=== PATIENT | male | born 1975 | race Caucasian/White ===

== ENCOUNTER 2021-05-31 22:44 | Emergency (ER) | payer BC, SELFPAY ==
--- NOTE | ~2021-05-31 | CT_ITS ---
EXAMINATION: CTA brain carotid DATE: 05/31/2021 23:40 INDICATION: Hemianopsia TECHNIQUE: Computed tomographic angiography (CTA) of the head was performed without and with 100 mL O mnipaque-350 intravenous contrast. CTA of the neck was performed with intravenous contrast. The dose- length product was 1823.60 mGy-cm. Maximum intensity projection and volume rendered 3D-reconstruction s were created by the technologist on a separate workstation. Automated exposure control and iterativ e reconstruction technique were employed. COMPARISON: None. FINDINGS: HEAD CTA: There is no intracranial hemorrhage, acute infarction, or abnormal mass lesion. The ventric les are normal. There is no abnormal mass effect or midline shift. The felder-white matter differentiat ion is normal. The basal cisterns are patent. The orbits are normal. The paranasal sinuses, mastoids and calvarium are normal. There is no significant stenosis of the basilar artery or posterior cerebral arteries. There is no si gnificant stenosis of the intracranial internal carotid arteries or the anterior or middle cerebral a rteries. The posterior communicating arteries are normal. The anterior communicating artery is diminu tive. There is no aneurysm. NECK CTA: The thyroid gland is unremarkable. The submandibular and parotid glands are symmetric. Ther e is no lymphadenopathy. There are no masses identified. The airway is unremarkable. There is moderat e cervical spondylosis at C5 C6-7. The superior mediastinum is unremarkable. There is 0% stenosis of the proximal right internal carotid artery relative to normal distal artery l umen diameter (NASCET criteria). There is 0% stenosis of the proximal left internal carotid artery re lative to normal distal artery lumen diameter. IMPRESSION: 1. No acute intracranial abnormality. Normal head CTA. 2. 0% stenosis of the proximal right internal carotid artery relative to normal distal artery lumen d iameter (NASCET criteria). 3. 0% stenosis of the proximal left internal carotid artery relative to normal distal artery lumen di ameter. Reviewed, dictated and finalized at location A. IMPRESSION: 1. No acute intracranial abnormality. Normal head CTA. 2. 0% stenosis of the proximal right internal carotid artery relative to normal distal artery lumen diameter (NASCET criteria). 3. 0% stenosis of the proximal left internal carotid artery relative to normal distal artery lumen diameter.
[2021-05-31 22:53] VITALS: BP 149/92; PULSE 54; RESP 18; TEMP 36.6; O2SAT 100
--- NOTE | 2021-05-31 23:11 | ECG_ITS ---
Measurements Intervals [place] Rate: 97 P: 46 ND: 160 QRS: -4 QRSD: 100 T: 99 QT: 362 QTc: 461 Interpretive Statements SINUS RHYTHM VENTRICULAR PREMATURE COMPLEX POSSIBLE LEFT ATRIAL ENLARGEMENT DELAYED PRECORDIAL R/S TRANSITION CONSIDER INFERIOR INFARCT, AGE INDETERMINATE BORDERLINE T WAVE ABNORMALITY- HIGH LATERAL LEADS ABNORMAL ECG Electronically Signed On 06-01-2021 5:38:11 CDT by Johnny Zaldivar D.O.
[2021-05-31 23:30] VITALS: BP 149/92; PULSE 54; RESP 18; O2SAT 100
[2021-05-31 23:32] LABS: Basophils Percent Auto 0.5 % (0.2-1.2); Eosinophils Absolute Auto 0.2 K/mm3 (0-0.3); Eosinophils Percent Auto 2.6 % (0-4.4); Hematocrit 45.8 % (42.0-52.0); Hemoglobin 15.4 g/dL (14.0-18.0); Immature Granulocyte Absolute 0.03 K/mm3 (0.00-0.031); Immature Granulocyte Percent A 0.4 % (0-0.5); Lymphocytes Absolute Auto 2.96 K/mm3 (0.9-3.2); Lymphocytes Percent Auto 36.8 % (18.3-44.2); Mean Corpuscular HGB Conc 33.6 g/dl (32-36); Mean Corpuscular Hemoglobin 31.8 pg (26-34); Mean Corpuscular Volume 94.4 fl (80-100); Mean Platelet Volume 9.6 fl (7.4-10.4); Monocytes Absolute Auto 0.7 K/mm3 (0.1-0.6); Monocytes Percent Auto 8.2 % (2.6-8.5); Neutrophils Absolute Auto 4.2 K/mm3 (1.3-6.7); Neutrophils Percent Auto 51.5 % (45.5-73.1); Platelet Count Result 295 k/mm3 (150-375); Red Blood Count 4.85 M/mm3 (4.6-6.20); Red Cell Distribution Width 13.1 % (11.5-14.5); White Blood Count 8.1 K/mm3 (4.5-10.0)
[2021-05-31 23:41] LABS: Prothrombin Time 12.9 Seconds (11.1-14.7)
[2021-05-31 23:45] VITALS: BP 137/103; PULSE 109; RESP 24; O2SAT 97
[2021-06-01] VITALS: BP 141/100; PULSE 101; RESP 23; O2SAT 96
[2021-06-01 00:20] VITALS: BP 136/104; PULSE 94; RESP 22; O2SAT 95
--- NOTE | 2021-06-01 00:25 | ED.EYEPROB ---
HPI - Eye Problem General Chief complaint: Eye Problems Stated complaint: loss of vision in right eye Time Seen by Provider: 05/31/21 23:09 Source: patient Mode of arrival: ambulatory Limitations: no limitations History of Present Illness HPI Narrative: 46-year-old with no major medical problems here with complaints of loss of vision in the right eye. Patient states that he had a brief nap at 9 PM woke up at 9.35 pm and is unable to see out of his right eye. Patient denies any headache or trauma. No previous history of stroke or visual problems. MD chief complaint: vision change Onset (ago): hour(s) (1) Onset description: sudden Duration: constant Location: right eye Eye Symptoms: other (Loss of peripheral vision) Place: home Severity: moderate Associated symptoms: none Related Data Home Medications Medication Instructions Recorded Confirmed No Home Medications 05/31/21 05/31/21 Allergies Allergy/AdvReac Type Severity Reaction Status Date / Time codeine Allergy Unknown Verified 05/31/21 23:43 NSAIDS (Non-Steroidal Allergy Anaphylactic Verified 05/31/21 23:43 Anti-Inflamma Shock Review of Systems Review of Systems: All systems reviewed & are unremarkable except as noted in HPI and below Constitutional: Constitutional: Reports no additional constitutional complaints Eyes: Eyes: Reports loss of peripheral vision (on the right) ENT: Reports system reviewed and no additional complaints, except as documented Cardiovascular: Cardiovascular: Reports no additional cardiovascular complaints Respiratory: Respiratory: Reports no additional respiratory complaints Gastrointestinal: Gastrointestinal: Reports no additional gastrointestinal complaints Musculoskeletal: Musculoskeletal: Reports no additional musculoskeletal complaints Integumentary/Breasts: Skin/Breast: Reports system reviewed and no additional complaints, except as docu Neurologic: Reports system reviewed and no additional complaints, except as documented Exam Narrative: GENERAL: Well-appearing, well-nourished, and in no acute distress. HEAD: Normocephalic, atraumatic. EYES: PERRLA and EOMI. Fundus is normal ,has no peripheral vision on the right lateralside ENT: Nares clear, no rhinorrhea or epistaxis. Mucous membranes moist. NECK: Supple. CHEST: Clear to auscultation. No respiratory distress. HEART: Regular rate and rhythm. No murmur heard. Normal peripheral pulses. ABDOMEN: Soft, nontender, nondistended, normal active bowel sounds. EXTREMITIES: Normal range of motion. No edema. SKIN: Warm, dry, no rash. NEURO: No focal deficits. Alert and oriented x3. PSYCH: Normal mood and affect. Course Course Emergency Course: Patient continues to have peripheral loss of vision on the right side. Informed him about his lab work, CT findings. I discussed with Dr. Trotter neurology at [facility] recommended ophthalmology consult. This discussed with Dr. oGyal recommended patient transferred to [facility] ER. Vital Signs Vital signs: Vital Signs Temperature 36.6 C 05/31/21 22:53 Pulse Rate 54 L 05/31/21 22:53 Respiratory Rate 18 05/31/21 22:53 Blood Pressure 149/92 H 05/31/21 22:53 Pulse Oximetry 100 05/31/21 22:53 Temperature 36.6 C 05/31/21 22:53 Pulse Rate 54 L 05/31/21 23:30 Respiratory Rate 18 05/31/21 23:30 Blood Pressure 149/92 H 05/31/21 23:30 Pulse Oximetry 100 05/31/21 23:30 MDM - Eye Problem Differential Diagnosis Differential diagnosis: Likely other (caental art occlusion , retinal detachment , stroke) Lab Data Result diagrams: 05/31/21 23:25 05/31/21 23:24 Labs: Lab Results 05/31/21 05/31/21 05/31/21 Range/Units 23:24 23:25 23:25 WBC 8.1 (4.5-10.0) K/mm3 RBC 4.85 (4.6-6.20) M/mm3 Hgb 15.4 (14.0-18.0) g/dL Hct 45.8 (42.0-52.0) % MCV 94.4 (80-100) fl MCH 31.8 (26-34) pg MCHC 33.6 (32-36) g/dl RDW 13.1 (11.5-14.5) % Plt Cou
[2021-06-01 00:29] VITALS: PULSE 98
[2021-06-01] MEDS: METOPROLOL TARTRATE INJ 5 MG/5 ML VIAL IV PUSH (00:29)
[2021-06-01 00:33] VITALS: BP 140/105; PULSE 97; RESP 26; O2SAT 96
[2021-06-01 00:40] VITALS: BP 132/83; PULSE 91; RESP 24; O2SAT 94
[2021-06-01 00:55] VITALS: BP 138/106; PULSE 90; RESP 14; O2SAT 95
== END 2021-06-01 00:55 | disposition short-term general hospital (02) ==
PROVIDERS: Emergency Provider Family Medicine
DX: H53.47 Heteronymous bilateral field defects (principal)
CPT/HCPCS: 36415; 70496; 70498; 84484; 85025; 85610; 93005; 96374; 99285; Q9967

== ENCOUNTER 2022-04-10 12:29 | Emergency (ER) | payer BC, SELFPAY ==
--- NOTE | ~2022-04-10 | US_ITS ---
EXAMINATION: US venous doppler LE RT DATE: 04/10/2022 13:26 INDICATION: Right lower limb swelling TECHNIQUE: Putnam scale images without and with compression and Doppler images of the right lower extre mity veins were obtained. COMPARISON: None FINDINGS: The right common femoral vein, profunda femoral vein, femoral vein, popliteal vein, peronea l trunk, posterior tibial veins, and greater saphenous vein are patent. IMPRESSION: 1. Patent right lower extremity veins. No evidence of deep venous thrombosis. Reviewed, dictated and finalized at location B.
[2022-04-10 12:33] VITALS: BP 154/95; PULSE 72; RESP 16; TEMP 36.3; O2SAT 100
[2022-04-10 12:46] LABS: Basophils Absolute Auto 0.1 K/mm3 (0.0-0.1); Basophils Percent Auto 0.8 % (0.2-1.2); Eosinophils Absolute Auto 0.4 K/mm3 (0-0.3); Eosinophils Percent Auto 4.9 % (0-4.4); Hematocrit 45.6 % (42.0-52.0); Hemoglobin 15.3 g/dL (14.0-18.0); Immature Granulocyte Absolute 0.02 K/mm3 (0.00-0.031); Immature Granulocyte Percent A 0.3 % (0-0.5); Lymphocytes Absolute Auto 2.45 K/mm3 (0.9-3.2); Lymphocytes Percent Auto 34.1 % (18.3-44.2); Mean Corpuscular HGB Conc 33.6 g/dl (32-36); Mean Corpuscular Hemoglobin 31.1 pg (26-34); Mean Corpuscular Volume 92.7 fl (80-100); Mean Platelet Volume 9.6 fl (7.4-10.4); Monocytes Absolute Auto 0.5 K/mm3 (0.1-0.6); Monocytes Percent Auto 6.4 % (2.6-8.5); Neutrophils Absolute Auto 3.9 K/mm3 (1.3-6.7); Neutrophils Percent Auto 53.5 % (45.5-73.1); Platelet Count Result 261 k/mm3 (150-375); Red Blood Count 4.92 M/mm3 (4.6-6.20); Red Cell Distribution Width 12.7 % (11.5-14.5); White Blood Count 7.2 K/mm3 (4.5-10.0)
[2022-04-10 13:00] LABS: Alanine Aminotransferase 30 U/L (6-50); Albumin Level 4.6 g/dL (3.5-5.1); Alkaline Phosphatase 73 U/L (38-126); Anion Gap 16 mmol/L (8-16); Aspartate Amino Transferase 33 U/L (17-59); Bilirubin,Total 1.2 mg/dL (0.2-1.3); Blood Urea Nitrogen 18 mg/dL (9-20); Calcium 9.2 mg/dL (8.4-10.2); Carbon Dioxide 26 mmol/L (22-30); Chloride 99 mmol/L (98-107); Estimated CRCL calculation 111 ml/min; Estimated Glomerular Filt Rate > 60; Glucose 108 mg/dL (65-110); Potassium 4.4 mmol/L (3.4-5.0); Sodium 141 mmol/L (137-145)
[2022-04-10 13:09] LABS: INR 1.2; Prothrombin Time 14.8 Seconds (11.1-14.7)
--- NOTE | 2022-04-10 13:50 | ED.GENADULT ---
HPI - General Adult General Chief complaint: Unspecified Stated complaint: snake bite follow up Time Seen by Provider: 04/10/22 12:39 History of Present Illness HPI narrative: 46-year-old male presenting to the emergency department for evaluation of persistent right lower leg swelling after a copperhead bite approximately 1 week ago. This happened when he was in [place]. Antivenom was not given. Patient states that the foot usually swells up during the day but then resolves at nighttime. Patient states that the swelling did not improve last night so he presented to the emergency department for evaluation. Related Data Allergies Allergy/AdvReac Type Severity Reaction Status Date / Time codeine Allergy Unknown Verified 05/31/21 23:43 NSAIDS (Non-Steroidal Allergy Anaphylactic Verified 05/31/21 23:43 Anti-Inflamma Shock Review of Systems Review of Systems: CONSTITUTIONAL: Denies fever, chills, or sweats. EYES: Denies visual changes, redness, or discharge. ENT: Denies rhinorrhea, congestion, sore throat, or otalgia. CARDIOVASCULAR: Denies chest pain, palpitations, or edema. RESPIRATORY: Denies cough or dyspnea. GASTROINTESTINAL: Denies abdominal pain, nausea, vomiting, or diarrhea. GENITOURINARY: Denies dysuria or hematuria. SKIN: Denies rash or itching. MUSCULOSKELETAL: See HPI NEUROLOGIC: Denies headache, numbness, or weakness. Exam Narrative: APPEARANCE: Well appearing, no pain, no distress, well-nourished. HEAD: normocephalic, atraumatic. EYES: PERRLA/EOMI, conjunctivae clear. NOSE: Normal no drainage NECK: Supple. No adenopathy, no masses. RESPIRATORY: Airway patent, respirations nonlabored. Clear to auscultation bilaterally, no rales, rhonchi, wheezing. CARDIOVASCULAR: Regular rate and rhythm without murmurs rubs or gallops. ABDOMINAL: Soft, nontender, nondistended, normal bowel sounds MUSCULOSKELETAL: Moves all extremities. Normal cap refill. Strong dorsalis pedis pulse. Edema of the right lower extremity. NEURO: Alert. Cranial nerves II through XII intact. Grossly intact SKIN: No evidence of cellulitis or necrosis. Course Course Emergency Course: Ultrasound shows no evidence of DVT. Patient is up to the results of the work-up and exam. Patient was updated on ways to help treat the edema. All questions and concerns were addressed. Vital Signs Vital signs: Vital Signs Temperature 97.3 F L 04/10/22 12:33 Pulse Rate 72 04/10/22 12:33 Respiratory Rate 16 04/10/22 12:33 Blood Pressure 154/95 H 04/10/22 12:33 Pulse Oximetry 100 04/10/22 12:33 Temperature 97.3 F L 04/10/22 12:33 Pulse Rate 70 04/10/22 14:19 Respiratory Rate 18 04/10/22 14:19 Blood Pressure 140/89 04/10/22 14:19 Pulse Oximetry 99 04/10/22 14:19 Medical Decision Making Vital Signs Vital Signs: Vital Signs Temperature 97.3 F L 04/10/22 12:33 Pulse Rate 72 04/10/22 12:33 Respiratory Rate 16 04/10/22 12:33 Blood Pressure 154/95 H 04/10/22 12:33 Pulse Oximetry 100 04/10/22 12:33 Temperature 97.3 F L 04/10/22 12:33 Pulse Rate 70 04/10/22 14:19 Respiratory Rate 18 04/10/22 14:19 Blood Pressure 140/89 04/10/22 14:19 Pulse Oximetry 99 04/10/22 14:19 Lab Data Lab results reviewed: Yes I reviewed the patient's lab results. Result diagrams: 04/10/22 12:39 04/10/22 12:39 Labs: Lab Results 04/10/22 04/10/22 04/10/22 Range/Units 12:39 12:39 12:39 WBC 7.2 (4.5-10.0) K/mm3 RBC 4.92 (4.6-6.20) M/mm3 Hgb 15.3 (14.0-18.0) g/dL Hct 45.6 (42.0-52.0) % MCV 92.7 (80-100) fl MCH 31.1 (26-34) pg MCHC 33.6 (32-36) g/dl RDW 12.7 (11.5-14.5) % Plt Count 261 (150-375) k/mm3 MPV 9.6 (7.4-10.4) fl Immature Gran % (Auto) 0.3 (0-0.5) % Neut % (Auto) 53.5 (45.5-73.1) % Lymph % (Auto) 34.1 (18.3-44.2) % [place] % (Auto) 6.4 (2.6-8.5) % Eos % (Auto) 4.9 H (0-4.4) % Baso % (Auto)
[2022-04-10] MEDS: ONDANSETRON HCL ODT 4 MG TABLET PO (14:05)
[2022-04-10 14:19] VITALS: BP 140/89; PULSE 70; RESP 18; O2SAT 99
== END 2022-04-10 14:20 | disposition home or self-care (01) ==
PROVIDERS: Emergency Provider Emergency Medicine; PCP Family Medicine Sports Medicine
DX: M79.89 Other specified soft tissue disorders (principal); Z87.828 Personal history of other (healed) physical injury and trauma
CPT/HCPCS: 36415; 80053; 85025; 85610; 93971; 99284; A9270

== ENCOUNTER 2025-02-07 15:44 | Emergency (ER) | payer BC, SELFPAY ==
--- NOTE | ~2025-02-07 | XR_ITS ---
EXAM: XR hand RT min 3V DATE: 02/07/2025 16:19 HISTORY: hand pain/swelling after fall . COMPARISON: None available. FINDINGS: Normal mineralization. No fracture or dislocation. No lytic or blastic lesion. Joint space s are maintained. No erosion or periosteal change. Soft tissues within normal limits. IMPRESSION: No acute osseous finding in the right hand. Reviewed, dictated and finalized at location K.
[2025-02-07 15:52] VITALS: BP 139/101; PULSE 74; RESP 16; TEMP 36.6; O2SAT 98
--- NOTE | 2025-02-07 16:26 | ED.UPPEXIN ---
HPI - Extremity Injury (Upper) General Chief Complaint: Extremity Injury, Upper Stated Complaint: Swollen Hands Source: patient Mode of arrival: ambulatory Limitations: no limitations History of Present Illness HPI narrative: 49-year-old male presented for complaint of right hand pain and swelling following an injury today. He states at 1:00 p.m. he fell from a 4 ft ladder, and landed on the right palmar side of the hand onto asphalt. Pain is mostly to the thumb, index and middle fingers. pain also radiates into the forearm. Denies wrist pain, numbness, tingling, weakness, bruising or deformity. Related Data Home Medications ?Medication ?Instructions ?Recorded ?Confirmed ?Last Taken ?Type apixaban 5 mg tablet (Eliquis) mg 02/07/25 Unknown History atorvastatin 80 mg tablet mg 02/07/25 Unknown History dapagliflozin propanediol 10 mg mg 02/07/25 Unknown History tablet lisinopril 10 mg tablet mg 02/07/25 Unknown History sotalol 120 mg tablet mg 02/07/25 Unknown History Allergies Allergy/AdvReac Type Severity Reaction Status Date / Time codeine Allergy Unknown Verified 02/07/25 16:13 NSAIDS (Non-Steroidal Allergy Anaphylactic Verified 02/07/25 16:13 Anti-Inflamma Shock Review of Systems Review of Systems: CONSTITUTIONAL: Denies body aches, fever, chills EYES: Denies visual changes ENT: Denies rhinorrhea, congestion CARDIOVASCULAR: Denies chest pain, palpitations, or edema. RESPIRATORY: Denies cough or dyspnea. SKIN: Denies wounds. MUSCULOSKELETAL: reports Right hand pain NEUROLOGIC: Denies headache, numbness, tingling, or weakness. All systems reviewed & are unremarkable except as noted in HPI and below [facility] Comments At time of signature, I have reviewed and agree with nursing past medical, surgical, social and family history unless otherwise noted. Please see nursing chart for further information. There is no relevant family history pertinent to the presenting complaint Exam Narrative: GENERAL: Well-appearing. CHEST: Speaks in full sentences. No respiratory distress. HEART: Regular rate and rhythm. Normal and equal peripheral pulses. EXTREMITIES: Right hand is tender with palpation to MTP1-3, mild swelling. No bruising or deformity. Hand has normal strength and sensation, normal range of motion and finger cascade. Thumbs up sign normal. Contract Implementation Analyst strong but reports pain. No open wounds. alignment normal, pulse palpable and equal bilaterally, skin warm, dry, pink. Capillary refill less than 3 seconds. SKIN: Warm, dry NEURO: Alert and oriented x3. PSYCH: Normal mood and affect Course Course Emergency Course: Patient is aware of diagnosis, understands and agrees to treatment plan. Anticipatory guidance given. Patient agrees to follow-up as directed and is aware of reasons to seek care at the emergency department. Portions of this record may have been created with voice recognition software Level of Care: Express Care Visit Vital Signs Vital signs: Vital Signs Temperature 97.9 F 02/07/25 15:52 Pulse Rate 74 02/07/25 15:52 Respiratory Rate 16 02/07/25 15:52 Blood Pressure 139/101 H 02/07/25 15:52 Pulse Oximetry 98 02/07/25 15:52 Temperature 97.9 F 02/07/25 15:52 Pulse Rate 74 02/07/25 15:52 Respiratory Rate 16 02/07/25 15:52 Blood Pressure 139/101 H 02/07/25 15:52 Pulse Oximetry 98 02/07/25 15:52 Reviewed MDM - Extremity Injury (Upper) MDM Narrative Medical decision making narrative: Discussed physical exam findings and xray.declined brandin. Advised supportive measures and signs/symptoms to go to the ER. Pt is appropriate for outpt treatment and f/u. Differential Diagnosis Differential diagnosis: Likely sprain and strain of wrist, fracture of wrist, finger sprain, dislocation of finger and fracture of hand Imaging Data Radiologist's impression: Patient: Tl [place] : 1975 MR#: [id number] Age: 49 Acct:[id number] Loc: [facility] ADM Date: 02/07/25Attending Dr: EXAM: XR hand RT min 3V DATE: 02/07/2025 16:19 HISTORY: hand pain/swelling after fall . COMPARISON: None available. FINDINGS: Normal mineralization. No fracture or dislocation. No lytic or blastic lesion. Joint spaces are maintained. No erosion or periosteal change. Soft tissues within normal limits. IMPRESSION: No acute osseous finding in the right hand. Discharge Plan Discharge Clinical Impression: Hand sprain Patient Disposition: Home Condition: Stable Instructions: Hand Sprain (ED) Additional Instructions: Rest and elevate the hand; activity as tolerated Apply ice 15-20 minute intervals several times a day Motrin 800mg every 8 hours, alternate with Tylenol 1000mg every 8 hours as needed Follow up with your primary care provider as needed Go to the ER for worsening symptoms or concerns Patient Language: Norwegian Prescriptions: No Action atorvastatin 80 mg tablet sotalol 120 mg tablet lisinopril 10 mg tablet Eliquis 5 mg tablet dapagliflozin propanediol 10 mg tablet ondansetron 4 mg tablet,disintegrating 4 mg PO Q8H PRN (Reason: nausea and vomiting) Qty: 14 0RF Follow-up/Referrals: PHYSICIAN,MANAGER STATISTICAL PROGRAMMING [Primary Care Provider] -
== END 2025-02-07 17:04 | disposition home or self-care (01) ==
PROVIDERS: Emergency Provider Nurse Practitioner Family
DX: S63.91XA Sprain of unspecified part of right wrist and hand, initial encounter (principal); W11.XXXA Fall on and from ladder, initial encounter; I48.91 Unspecified atrial fibrillation; I10 Essential (primary) hypertension; E78.00 Pure hypercholesterolemia, unspecified; Z86.73 Personal history of transient ischemic attack (TIA), and cerebral infarction without residual deficits
CPT/HCPCS: 73130; 99213; G0463